=== PATIENT | female | born 1990 | race Caucasian/White ===

== ENCOUNTER 2023-07-29 14:00 | Emergency (ER) | payer MEDICAID ==
[~2023-07-29] VITALS: Ht 157.5 cm; Wt 102.1 kg
[~2023-07-29 14:00] MED LIST: ONDA4TAB5 PO; OXYC-128 PO
[2023-07-29 14:03] VITALS: O2SAT 98
[2023-07-29] MEDS ORDERED: NEOM10DR11 RIGHT EAR (14:15)
[2023-07-29] MEDS ORDERED: AMOX-430 PO (14:15)
== END 2023-07-29 14:27 | disposition home or self-care (01) ==
LOC: ER 14:00
DX: H66.91 Otitis media, unspecified, right ear (principal); H60.91 Unspecified otitis externa, right ear; J06.9 Acute upper respiratory infection, unspecified; R05.9 Cough, unspecified; R09.81 Nasal congestion; Z79.899 Other long term (current) drug therapy
CPT/HCPCS: A4606; A4663

== ENCOUNTER 2023-08-20 01:24 | Emergency (ER) | payer MEDICAID ==
[~2023-08-20 01:24] MED LIST changes: +AMOX-430 PO; +NEOM10DR11 RIGHT EAR
== END 2023-08-20 04:00 | disposition left against medical advice (07) ==
LOC: ER 01:35
DX: H92.09 Otalgia, unspecified ear (principal); Z53.21 Procedure and treatment not carried out due to patient leaving prior to being seen by health care provider

== ENCOUNTER 2023-09-15 12:45 | Inpatient (IN) | payer MEDICAID ==
[~2023-09-15] VITALS: Ht 160 cm; Wt 122.5 kg
[2023-09-15 13:46] LABS: ERYTHROCYTE SEDIMENTATION RATE 10 MM/HR (0-20)
[2023-09-15 13:47] LABS: CREATININE 0.7 mg/dL (0.6-1.3)
[2023-09-15 13:52] LABS: BASOPHILS % (AUTO) 0.5 % (0.0-2.0); EOSINOPHILS # (AUTO) 0.1 K/uL (0.0-0.7); EOSINOPHILS % (AUTO) 1.2 % (0.0-7.0); HEMATOCRIT 38.1 % (31.2-41.9); HEMOGLOBIN 12.8 g/dL (10.9-14.3); LYMPHOCYTES # (AUTO) 2.4 K/uL (0.8-4.8); LYMPHOCYTES % (AUTO) 42.4 % (20.5-51.5); MEAN CORPUSCULAR HEMOGLOBIN 26.3 uug (24.7-32.8); MEAN CORPUSCULAR HGB CONC 34 g/dL (32.3-35.6); MEAN CORPUSCULAR VOLUME 78.2 fL (75.5-95.3); MONOCYTES # (AUTO) 0.3 K/uL (0.1-1.30); MONOCYTES % (AUTO) 4.9 % (0.0-11.0); NEUTROPHILS # (AUTO) 2.9 K/uL (1.8-8.9); PLATELET COUNT (AUTO) 368 K/uL (179-408); RED BLOOD CELL COUNT(AUTO) 4.87 MIL/uL (3.63-4.92); RED CELL DISTRIBUTION WIDTH 14.8 % (12.3-17.7); WHITE BLOOD COUNT (AUTO) 5.7 K/uL (3.8-11.8)
[2023-09-15 13:53] LABS: ALBUMIN 3.9 g/dL (3.4-5.0); BILIRUBIN,TOTAL 0.3 mg/dL (0.2-1.0); TOTAL PROTEIN, SERUM 7.3 g/dL (6.4-8.2)
[2023-09-15 14:01] LABS: DIFFERENTIAL COMMENT 1
[2023-09-15] MEDS ORDERED: IV NORMAL SALINE 250 ML IV ONE (14:36)
[2023-09-15] MEDS ORDERED: SWABABLE VALVE TRANSFER SET EA MC ONE (14:36)
[2023-09-15] MEDS ORDERED: IOHEXOL 300MG/ML 100 ML INFUS..BTL ONE (14:36)
[2023-09-15] MEDS ORDERED: PIPERACILLIN/TAZO 4.5 GM VIAL IV ONE (16:09)
[2023-09-15] MEDS ORDERED: ONDANSETRON 4 MG/2 ML VIAL ONE (16:22)
[2023-09-15] MEDS ORDERED: MORPHINE SULFATE 4 MG/1 ML DISP.SYRIN ONE (16:23)
[2023-09-15] MEDS: ONDANSETRON 4 MG/2 ML VIAL IV ONE (16:45)
[2023-09-15] MEDS: PIPERACILLIN SODIUM/TAZOBACTAM 4.5 G in IV DEXTROSE 5% 50 ML IV SCH (16:46)
[2023-09-15] MEDS: MORPHINE SULFATE 4 MG/1 ML DISP.SYRIN IV ONE (16:46)
[2023-09-15] MEDS ORDERED: VANCOMYCIN HCL 500 MG VIAL ONE (17:33)
[2023-09-15] MEDS: DEXTROSE 5% IV ONE (17:50)
[2023-09-15] MEDS: VANCOMYCIN IV ONE (17:50)
[2023-09-15] MEDS: HYDROMORPHONE 1 MG/1 ML DISP.SYRIN IV ONE (20:00)
[2023-09-15] MEDS ORDERED: MAGNESIUM HYDROXIDE 30 ML LIQUID UDC PO PRN (20:45)
[2023-09-15] MEDS ORDERED: ONDANSETRON 4 MG/2 ML VIAL IV PRN (20:45)
[2023-09-15] MEDS ORDERED: diphenhydrAMINE 50 MG/1 ML VIAL ONE (20:53)
[2023-09-15] MEDS ORDERED: HYDROMORPHONE 1 MG/1 ML DISP.SYRIN ONE (20:53)
[2023-09-15] MEDS: diphenhydrAMINE 50 MG/1 ML VIAL IV ONE (21:03)
[2023-09-15] MEDS ORDERED: PIPERACILLIN SODIUM/TAZO 3.375 GM VIAL ONE (21:39)
[2023-09-15] MEDS ORDERED: PIPERACILLIN/TAZOBACTAM/D5W 50 ML IV ONE (21:39)
[2023-09-15 21:40] VITALS: BP 119/70; TEMP 98.1; O2SAT 96
[2023-09-15] MEDS ORDERED: PIPERACILLIN SODIUM/TAZOBACTAM 3.375 G in IV DEXTROSE 5% 50 ML IV SCH (22:00)
[2023-09-15] MEDS: IV 1/2NS 1000 ML 1,000 ML IV PRN (22:19)
[2023-09-15] MEDS: PIPERACILLIN SODIUM/TAZOBACTAM 3.375 G in IV DEXTROSE 5% 50 ML IV SCH (23:46)
[2023-09-16] MEDS: HYDROCODONE/APAP 5-325MG TABLET PO PRN (03:06)
[2023-09-16 04:00] VITALS: BP 91/53; TEMP 98; O2SAT 96
[2023-09-16] MEDS: PANTOPRAZOLE SODIUM 40 MG TABLET.DR PO SCH (06:13)
[2023-09-16 07:28] LABS: BASOPHILS % (AUTO) 0.4 % (0.0-2.0); EOSINOPHILS # (AUTO) 0.1 K/uL (0.0-0.7); EOSINOPHILS % (AUTO) 1.3 % (0.0-7.0); HEMATOCRIT 36.2 % (31.2-41.9); HEMOGLOBIN 12.2 g/dL (10.9-14.3); LYMPHOCYTES # (AUTO) 2.5 K/uL (0.8-4.8); LYMPHOCYTES % (AUTO) 31.3 % (20.5-51.5); MEAN CORPUSCULAR HEMOGLOBIN 26.6 uug (24.7-32.8); MEAN CORPUSCULAR HGB CONC 34 g/dL (32.3-35.6); MEAN CORPUSCULAR VOLUME 78.5 fL (75.5-95.3); MONOCYTES # (AUTO) 0.3 K/uL (0.1-1.30); MONOCYTES % (AUTO) 3.8 % (0.0-11.0); NEUTROPHILS % (AUTO) 63.2 % (38.5-71.5); PLATELET COUNT (AUTO) 375 K/uL (179-408); RED CELL DISTRIBUTION WIDTH 14.2 % (12.3-17.7)
[2023-09-16 07:55] LABS: ALANINE AMINOTRANSFERASE 15 U/L (14-59); ALBUMIN 3.4 g/dL (3.4-5.0); ALKALINE PHOSPHATASE 68 U/L (50-136); ASPARTATE AMINOTRANSFERASE < 5 U/L (15-37); BILIRUBIN,TOTAL 0.4 mg/dL (0.2-1.0); CALCIUM 8.5 mg/dL (8.5-10.1); CARBON DIOXIDE 25 mmol/L (21-32); CHLORIDE 108 mmol/L (98-107); CREATININE 0.8 mg/dL (0.6-1.3); GLUCOSE 104 mg/dL (74-106); MAGNESIUM 2.2 mg/dL (1.8-2.4); SODIUM SERUM 141 mmol/L (136-145); TOTAL PROTEIN, SERUM 6.6 g/dL (6.4-8.2); UREA NITROGEN, BLOOD 13 mg/dL (7-18)
[2023-09-16 07:57] LABS: DIFFERENTIAL COMMENT 1
[2023-09-16 08:00] VITALS: BP 125/87; TEMP 97.6; O2SAT 98
[2023-09-16] MEDS: GABAPENTIN 100 MG CAPSULE PO SCH (09:55)
[2023-09-16 11:59] VITALS: BP 110/65; TEMP 98.3; O2SAT 97
[2023-09-16] MEDS: IBUPROFEN 600 MG TABLET PO PRN (12:33)
[2023-09-16] MEDS: PIPERACILLIN SODIUM/TAZOBACTAM 3.375 G in IV DEXTROSE 5% 100 ML IV SCH (13:33)
[2023-09-16 15:28] VITALS: BP 94/50; TEMP 98.5; O2SAT 96
[2023-09-16 20:00] VITALS: BP 133/92; TEMP 98.2; O2SAT 94
[2023-09-16] MEDS: TEMAZEPAM 15 MG CAPSULE PO PRN (21:48)
[2023-09-17 04:00] VITALS: BP 130/81; TEMP 98.4; O2SAT 95
[2023-09-17] MEDS: PANTOPRAZOLE SODIUM 40 MG TABLET.DR PO SCH (06:25)
[2023-09-17 11:56] VITALS: BP 98/56; TEMP 98; O2SAT 97
[2023-09-17] MEDS: GABAPENTIN 300 MG CAPSULE PO SCH (12:43)
[2023-09-17] MEDS ORDERED: GABAPENTIN 100 MG CAPSULE PO SCH (13:00)
[2023-09-17 16:12] VITALS: BP 115/71; TEMP 98.4; O2SAT 96
[2023-09-17 20:46] VITALS: BP 115/59; TEMP 98.1; O2SAT 96
[2023-09-18 04:15] VITALS: BP 130/91; TEMP 97.7; O2SAT 97
[2023-09-18] MEDS: ACETAMINOPHEN 325 MG TABLET PO PRN (04:30)
[2023-09-18] MEDS ORDERED: MECL-159 PO (09:26)
[2023-09-18] MEDS ORDERED: GABA300C PO (09:26)
[2023-09-18] MEDS ORDERED: AMOX-430 PO (09:26)
== END 2023-09-18 09:55 | disposition home or self-care (01) | DRG 113 ==
LOC: ER 12:45 → MEDSURG3 21:06
PROVIDERS: ADMIT Internal Medicine; ATTEND Internal Medicine
DX: H70.001 Acute mastoiditis without complications, right ear (principal); E66.01 Morbid (severe) obesity due to excess calories; H61.21 Impacted cerumen, right ear; R42 Dizziness and giddiness; Z68.42 Body mass index [BMI] 45.0-49.9, adult; H53.8 Other visual disturbances; Z71.3 Dietary counseling and surveillance
CPT/HCPCS: 36415; 70450; 83735; 84100; 85025; 85651; 87040; A4663; G0378; J1170; J1200; J2270; J2405; J2543; J3370; J7050; J7060; Q9967